=== PATIENT | male | born 1960 | race Caucasian/White ===

== ENCOUNTER 2021-04-03 12:56 | Inpatient (IN) | payer SELFPAY ==
[~2021-04-03] VITALS: Ht 167.6 cm; Wt 53.3 kg
[2021-04-03] MEDS ORDERED: SODIUM CHLORIDE 0.9% 1,000 ML IV ONE ×2 (13:30→17:00)
[2021-04-03 14:38] LABS: BASOPHILS % 0.2 % (0.0-2.0); HEMATOCRIT. 41.7 % (42.0-52.0); HEMOGLOBIN. 13.8 g/dL (14.0-18.0); MEAN CORPUSCULAR HEMOGLOBIN 26.8 pg (28.0-32.0); MEAN CORPUSCULAR VOLUME 80.8 fL (80.0-94.0); MEAN PLATELET VOLUME 8.5 fl (7.4-10.4); MONOCYTES % 2.8 % (2.0-8.0); PLATELET 79 x1000/uL (130-400); RED BLOOD CELL COUNT 5.16 mill/uL (4.7-6.1); RED CELL DISTRIBUTION WIDTH 18.5 % (11.6-14.6)
[2021-04-03 14:47] LABS: CHLORIDE 90 mEq/L (98-107)
[2021-04-03 14:59] LABS: INR 1.1; PROTHROMBIN TIME 11.9 sec (9.6-11.0)
[2021-04-03 15:11] LABS: ETHANOL BLOOD 477 mg/dL
[2021-04-03] MEDS ORDERED: ONDANSETRON HCL 4MG/2ML INJ IV STA ×2 (16:53→21:24)
[2021-04-03] MEDS ORDERED: FOLIC ACID 1 MG, THIAMINE HCL 100 MG, MVI, ADULT NO.1 10 ML in DEXTROSE 5% WATER 1,000 ML IV ONE (19:15)
[2021-04-03] MEDS ORDERED: METOCLOPRAMIDE HCL 10MG/2ML VIAL IV ONE (19:15)
[2021-04-03] MEDS ORDERED: ONDA4TAB5 MT (20:12)
[2021-04-03] MEDS ORDERED: DOXY100C2 MT (20:12)
[2021-04-03] MEDS ORDERED: AZITHROMYCIN 500 MG in DEXT 5% WATER 250 ML IV ONE (20:15)
[2021-04-03] MEDS ORDERED: CEFTRIAXONE 1 G PREMIX 50 ML IV ONE (20:15)
[2021-04-03] MEDS ORDERED: MAGNESIUM/ALUMINUM HYDROXIDE/SIMETHICONE 30ML UDC PO ONE (21:30)
[2021-04-03] MEDS ORDERED: METOCLOPRAMIDE HCL 10MG/2ML VIAL IV NR (23:15)
[2021-04-03] MEDS ORDERED: PANTOPRAZOLE SODIUM 40 MG/VIAL IV NR (23:15)
[2021-04-04 09:00] VITALS: BP 114/66
[2021-04-04] MEDS ORDERED: POTASSIUM CHLORIDE 20MEQ TABLET SR PO SCH (10:30)
[2021-04-04] MEDS: ACETAMINOPHEN 325MG TABLET PO PRN ×2 (11:22→22:07)
[2021-04-04] MEDS: AZITHROMYCIN 250 MG TABLET PO SCH (11:22)
[2021-04-04] MEDS: ONDANSETRON HCL 4MG/2ML INJ IV PRN ×2 (11:22→22:14)
[2021-04-04 12:00] VITALS: BP 131/81
[2021-04-04] MEDS: CEFTRIAXONE 1,000 MG in DEXTROSE 5% WATER 50 ML IV SCH (12:47)
[2021-04-04] MEDS: DEXT 5%/0.45% NACL 1000ML 1,000 ML IV SCH (12:47)
[2021-04-04] MEDS: FOLIC ACID 1 MG, THIAMINE HCL 100 MG, MVI, ADULT NO.1 10 ML in DEXTROSE 5% WATER 1,000 ML IV SCH (14:35)
[2021-04-04] MEDS: CHLORDIAZEPOXIDE 5 MG CAPSULE PO SCH ×2 (14:35→22:06)
[2021-04-04 16:00] VITALS: BP 119/79
[2021-04-04 20:00] VITALS: BP 138/90
[2021-04-05 00:43] VITALS: BP 124/84
[2021-04-05] MEDS: DEXT 5%/0.45% NACL 1000ML 1,000 ML IV SCH ×2 (01:05→06:39)
[2021-04-05 04:00] VITALS: BP 131/86
[2021-04-05] MEDS: CHLORDIAZEPOXIDE 5 MG CAPSULE PO SCH ×3 (06:57→21:22)
[2021-04-05 08:00] VITALS: BP 123/80
[2021-04-05] MEDS: AZITHROMYCIN 250 MG TABLET PO SCH (09:14)
[2021-04-05] MEDS: ACETAMINOPHEN 325MG TABLET PO PRN (09:14)
[2021-04-05] MEDS: FOLIC ACID 1 MG, THIAMINE HCL 100 MG, MVI, ADULT NO.1 10 ML in DEXTROSE 5% WATER 1,000 ML IV SCH (09:25)
[2021-04-05 10:15] LABS: CHLORIDE 89 mEq/L (98-107)
[2021-04-05 10:24] LABS: BASOPHILS % 0.2 % (0.0-2.0); EOSINOPHILS % 0.2 % (0.0-5.0); HEMATOCRIT. 34.9 % (42.0-52.0); HEMOGLOBIN. 11.8 g/dL (14.0-18.0); LYMPHOCYTES % 16.1 % (20.0-50.0); MEAN CORPUSCULAR HEMOGLOBIN 27.2 pg (28.0-32.0); MEAN CORPUSCULAR VOLUME 80.5 fL (80.0-94.0); MEAN PLATELET VOLUME 8.6 fl (7.4-10.4); MONOCYTES % 7.7 % (2.0-8.0); NEUTROPHILS % 75.8 % (40.0-76.0); PHOSPHORUS 1.8 mg/dL (2.5-4.9); RED BLOOD CELL COUNT 4.33 mill/uL (4.7-6.1); RED CELL DISTRIBUTION WIDTH 18.8 % (11.6-14.6)
[2021-04-05 10:31] LABS: CLARITY URINE CLEAR (CLEAR); COLOR URINE YELLOW (YELLOW); KETONES URINE 3+ (NEGATIVE); LEUKOCYTE ESTERASE URINE NEGATIVE (NEGATIVE); NITRITE URINE NEGATIVE (NEGATIVE); OCCULT BLOOD URINE NEGATIVE (NEGATIVE); PH URINE 6.5 (4.5-8.0); PROTEIN URINE 1+ (NEGATIVE); SPECIFIC GRAVITY URINE 1.016 (1.005-1.030); UROBILINOGEN URINE 0.2 E.U./dL (0.2-1.0)
[2021-04-05 10:38] LABS: PLATELET 31 x1000/uL (130-400)
[2021-04-05 10:43] LABS: *AMPHETAMINES SCREEN URINE NEGATIVE (NEGATIVE); *BARBITURATES SCREEN URINE NEGATIVE (NEGATIVE); *BENZODIAZEPINES SCREEN URINE PRESUMTIVE POSITIVE (NEGATIVE); *COCAINE SCREEN URINE NEGATIVE (NEGATIVE); OPIATES URINE SCREEN NEGATIVE (NEGATIVE)
[2021-04-05 10:44] LABS: CANNABINOID URINE SCREEN NEGATIVE (NEGATIVE); PHENCYCLIDINE URINE SCREEN NEGATIVE (NEGATIVE)
[2021-04-05 10:46] LABS: METHADONE URINE SCREEN NEGATIVE (NEGATIVE)
[2021-04-05] MEDS ORDERED: POTASSIUM CHLORIDE 20MEQ TABLET SR PO NR (11:15)
[2021-04-05] MEDS: SODIUM CHLORIDE 0.9% 1,000 ML IV SCH (11:45)
[2021-04-05 12:00] VITALS: BP 113/73
[2021-04-05] MEDS: CEFTRIAXONE 1,000 MG in DEXTROSE 5% WATER 50 ML IV SCH (12:23)
[2021-04-05 16:00] VITALS: BP 120/68
[2021-04-05] MEDS ORDERED: DEXTROSE 50% WATER 50ML SYRINGE IV PRN (19:00)
[2021-04-05 20:00] VITALS: BP 108/71
[2021-04-05] MEDS: BLOOD SUGAR DIAGNOSTIC STRIP TEST SCH (20:58)
[2021-04-05] MEDS: INSULIN LISPRO 100 UNITS/ML SUBCUT SCH (21:22)
[2021-04-05] MEDS ORDERED: POTASSIUM PHOS,M-BASIC-D-BASIC 15 MMOL in DEXT 5% WATER 245 ML IV NR (22:00)
[2021-04-05] MEDS ORDERED: MAGNESIUM 2 G PREMIX 50 ML IV NR (22:00)
[2021-04-06] VITALS (7 sets, daily range): BP systolic 102–110; BP diastolic 70–81
[2021-04-06] MEDS: SODIUM CHLORIDE 0.9% 1,000 ML IV SCH ×2 (01:13→14:25)
[2021-04-06] MEDS: CHLORDIAZEPOXIDE 5 MG CAPSULE PO SCH ×3 (05:54→21:40)
[2021-04-06] MEDS: BLOOD SUGAR DIAGNOSTIC STRIP TEST SCH ×4 (06:20→21:38)
[2021-04-06] MEDS: AZITHROMYCIN 250 MG TABLET PO SCH (08:48)
[2021-04-06] MEDS: INSULIN LISPRO 100 UNITS/ML SUBCUT SCH ×4 (08:51→21:40)
[2021-04-06 09:22] LABS: BASOPHILS % 0.2 % (0.0-2.0); CHLORIDE 93 mEq/L (98-107); EOSINOPHILS % 1.1 % (0.0-5.0); HEMATOCRIT. 35.7 % (42.0-52.0); LYMPHOCYTES % 24.8 % (20.0-50.0); MEAN CORPUSCULAR HEMOGLOBIN 27.4 pg (28.0-32.0); MEAN CORPUSCULAR VOLUME 81.6 fL (80.0-94.0); MEAN PLATELET VOLUME 9.5 fl (7.4-10.4); MONOCYTES % 7.1 % (2.0-8.0); NEUTROPHILS % 66.8 % (40.0-76.0); RED BLOOD CELL COUNT 4.38 mill/uL (4.7-6.1); RED CELL DISTRIBUTION WIDTH 18.5 % (11.6-14.6)
[2021-04-06 09:27] LABS: PLATELET 36 x1000/uL (130-400)
[2021-04-06 09:30] LABS: PHOSPHORUS 3.6 mg/dL (2.5-4.9)
[2021-04-06] MEDS: FOLIC ACID 1 MG, THIAMINE HCL 100 MG, MVI, ADULT NO.1 10 ML in DEXTROSE 5% WATER 1,000 ML IV SCH (11:07)
[2021-04-06] MEDS: CEFTRIAXONE 1,000 MG in DEXTROSE 5% WATER 50 ML IV SCH (12:40)
[2021-04-06 13:18] LABS: PLATELET ESTIMATE MARKEDLY DECREASED
[2021-04-06] MEDS ORDERED: GLIP5TAB12 MT (15:18)
[2021-04-06] MEDS ORDERED: THIA100T88 MT (15:18)
[2021-04-06] MEDS ORDERED: METF-416 MT (15:18)
[2021-04-06] MEDS ORDERED: POTASSIUM CHLORIDE 20MEQ TABLET SR PO NR (16:00)
[2021-04-07] VITALS: BP 91/60
[2021-04-07 04:00] VITALS: BP 108/74
[2021-04-07] MEDS: SODIUM CHLORIDE 0.9% 1,000 ML IV SCH ×2 (05:38→17:05)
[2021-04-07] MEDS: CHLORDIAZEPOXIDE 5 MG CAPSULE PO SCH ×3 (06:30→21:35)
[2021-04-07] MEDS: BLOOD SUGAR DIAGNOSTIC STRIP TEST SCH ×4 (06:30→21:30)
[2021-04-07 07:58] VITALS: BP 102/70
[2021-04-07] MEDS: INSULIN LISPRO 100 UNITS/ML SUBCUT SCH ×4 (08:39→21:35)
[2021-04-07] MEDS: AZITHROMYCIN 250 MG TABLET PO SCH (08:39)
[2021-04-07] MEDS: FOLIC ACID 1 MG, THIAMINE HCL 100 MG, MVI, ADULT NO.1 10 ML in DEXTROSE 5% WATER 1,000 ML IV SCH (08:40)
[2021-04-07 11:57] VITALS: BP 96/70
[2021-04-07] MEDS: CEFTRIAXONE 1,000 MG in DEXTROSE 5% WATER 50 ML IV SCH (12:28)
[2021-04-07 16:26] VITALS: BP 92/64
[2021-04-07 20:00] VITALS: BP 104/74
[2021-04-08] VITALS: BP 106/68
[2021-04-08 04:00] VITALS: BP 101/70
[2021-04-08] MEDS: SODIUM CHLORIDE 0.9% 1,000 ML IV SCH (04:24)
[2021-04-08] MEDS: BLOOD SUGAR DIAGNOSTIC STRIP TEST SCH (06:10)
[2021-04-08] MEDS: CHLORDIAZEPOXIDE 5 MG CAPSULE PO SCH (06:10)
[2021-04-08 08:00] VITALS: BP 106/66
[2021-04-08] MEDS: INSULIN LISPRO 100 UNITS/ML SUBCUT SCH (09:07)
[2021-04-08] MEDS: AZITHROMYCIN 250 MG TABLET PO SCH (09:08)
[2021-04-08] MEDS: FOLIC ACID 1 MG, THIAMINE HCL 100 MG, MVI, ADULT NO.1 10 ML in DEXTROSE 5% WATER 1,000 ML IV SCH (09:09)
[2021-04-08 11:35] VITALS: BP 106/66
[2021-04-08 12:00] VITALS: BP 97/64
== END 2021-04-08 14:00 | disposition home or self-care (01) | DRG 720 ==
LOC: EDBD 13:21 → ER 13:21 → MICUSO 23:13 → 6WST 04-04 07:23
PROVIDERS: ADMIT Internal Medicine; ATTEND Internal Medicine
DX: A41.9 Sepsis, unspecified organism (principal); G93.41 Metabolic encephalopathy; D69.6 Thrombocytopenia, unspecified; J18.9 Pneumonia, unspecified organism; E87.8 Other disorders of electrolyte and fluid balance, not elsewhere classified; D72.819 Decreased white blood cell count, unspecified; E87.6 Hypokalemia; E11.9 Type 2 diabetes mellitus without complications; F10.129 Alcohol abuse with intoxication, unspecified; R74.01 Elevation of levels of liver transaminase levels; Y90.8 Blood alcohol level of 240 mg/100 ml or more; Z20.822 Contact with and (suspected) exposure to COVID-19
CPT/HCPCS: 36415; 71045; 76700; 80048; 80053; 80305; 80320; 81003; 82962; 83036; 83735; 84100; 85025; 86850; 86900; 87426; 93005; 99285; C9113; J0456; J0696; J1815; J2405; J2765; J3411; J3475; J3490; J7030; J7060; J7070; G0480